=== PATIENT | female | born 1950 | race Caucasian/White ===

== ENCOUNTER → 2017-03-05 | Outpatient (CLI) | payer OTHER ==
[2017-03-05 16:38] LABS: ALBUMIN/GLOBULIN RATIO 1.1 (1.0-1.7); ALK PHOS 70 U/L (46-116); ALT (SGPT) 24 U/L (14-59); ANION GAP 12 (6-14); AST (SGOT) 20 U/L (15-37); BLOOD UREA NITROGEN 19 mg/dL (7-20); BUN/CREATININE RATIO 24 (6-20); C-REACTIVE PROTEIN 2.9 mg/L (0-3.3); CALCIUM 9.4 mg/dL (8.5-10.1); CARBON DIOXIDE 29 mmol/L (21-32); CHLORIDE 100 mmol/L (98-107); CREATINE KINASE 41 U/L (26-192); CREATININE 0.8 mg/dL (0.6-1.0); GFR 72.2; GLUCOSE 114 mg/dL (70-99); POTASSIUM 3.1 mmol/L (3.5-5.1); SODIUM 141 mmol/L (136-145); TOTAL BILIRUBIN 0.4 mg/dL (0.2-1.0); TOTAL PROTEIN 7.8 g/dL (6.4-8.2)
[2017-03-05 16:42] LABS: VITAMIN-B12 944 pg/mL (247-911)
[2017-03-05 17:11] LABS: THYROID STIM HORMONE (TSH) 4.228 uIU/mL (0.358-3.74)
== END | disposition home or self-care (01) ==
LOC: LAB 15:58
DX: E55.9 Vitamin D deficiency, unspecified (principal); R29.6 Repeated falls; R79.89 Other specified abnormal findings of blood chemistry; R94.6 Abnormal results of thyroid function studies
CPT/HCPCS: 36415; 80053; 82306; 82550; 82607; 84443; 86140

== ENCOUNTER → 2017-03-11 | Outpatient (CLI) | payer OTHER ==
[2017-03-11] MEDS: GADOBUTROL 7.5 MMOL/7.5 ML VIAL IV (08:50)
== END | disposition home or self-care (01) ==
LOC: MRI 08:02
DX: M79.7 Fibromyalgia (principal); M48.061 Spinal stenosis, lumbar region without neurogenic claudication; M12.88 Other specific arthropathies, not elsewhere classified, other specified site
CPT/HCPCS: 72158; 95816; A9585

== ENCOUNTER → 2017-04-15 | Outpatient (CLI) | payer OTHER ==
[2017-04-15 14:49] LABS: BARBITURATES NEG (NEG); BENZODIAZEPINES NEG (NEG); CANNABINOIDS NEG (NEG); COCAINE NEG (NEG); METHADONE NEG (NEG); OPIATES NEG (NEG); PHENCYCLIDINE NEG (NEG)
[2017-04-15 14:50] LABS: AMPHETAMINE/METHAMPHETAMINE NEG (NEG); ETHANOL, URINE NEG (NEG)
[2017-04-15 15:45] LABS: SEDIMENTATION RATE 26 (0-25)
[2017-04-15 19:17] LABS: RHEUMATOID FACTOR <10.0 IU/mL (0.0-13.9)
== END | disposition home or self-care (01) ==
LOC: LAB 14:11
DX: R29.6 Repeated falls (principal); Z79.899 Other long term (current) drug therapy
CPT/HCPCS: 36415; 80307; 84550; 85651; 86431

== ENCOUNTER → 2017-04-28 | Outpatient (CLI) | payer OTHER | END | disposition home or self-care (01) | LOC: RAD 15:05 | DX: M25.552 Pain in left hip (principal) | CPT/HCPCS: 73501 ==

== ENCOUNTER → 2017-05-01 | Outpatient (CLI) | payer OTHER ==
[~2017-05-01] MED LIST: BUPIVACAINE MPF 0.25% 10 ML VIAL. IJ; CONTRAST GIVEN MC; LIDOCAINE WITH 8.4% SOD BICARB 3 ML DISP.SYRIN.
[2017-05-01] MEDS: IOHEXOL 300 MG/ML 100ML VIAL. IJ (10:30)
[2017-05-01] MEDS: methylPREDNISolone ACETATE 80 MG/ML VIAL. IM (10:30)
[2017-05-01] MEDS: BUPIVACAINE 0.5% 50 ML VIAL. IJ (10:30)
== END | disposition home or self-care (01) ==
LOC: RAD 10:06
DX: M25.552 Pain in left hip (principal); J45.909 Unspecified asthma, uncomplicated; I10 Essential (primary) hypertension; Z87.891 Personal history of nicotine dependence; Z90.710 Acquired absence of both cervix and uterus; Z90.49 Acquired absence of other specified parts of digestive tract; Z98.890 Other specified postprocedural states; Z88.8 Allergy status to other drugs, medicaments and biological substances
CPT/HCPCS: 20605; 20610; 77002; J1040; J3490; Q9967